=== PATIENT | female | born 1990 | race African-American/Black ===

== ENCOUNTER 2019-01-15 22:47 | Observation (INO) | payer MEDICAID ==
[~2019-01-15] VITALS: Ht 165.1 cm; Wt 64.9 kg
[2019-01-15] MEDS ORDERED: PNV1TABL50 MT (23:44)
== END 2019-01-16 03:25 | disposition home or self-care (01) ==
LOC: 8 EST LDRP 22:47
PROVIDERS: ADMIT Obstetrics & Gynecology; ATTEND Obstetrics & Gynecology
DX: O36.8120 Decreased fetal movements, second trimester, not applicable or unspecified (principal); O99.89 Other specified diseases and conditions complicating pregnancy, childbirth and the puerperium; M54.9 Dorsalgia, unspecified; G89.29 Other chronic pain; Z3A.27 27 weeks gestation of pregnancy
CPT/HCPCS: 76805; 99281; G0378